=== PATIENT | female | born 2000 | race African-American/Black ===

== ENCOUNTER 2019-08-13 17:22 | Emergency (ER) | payer MEDICAID ==
[~2019-08-13] VITALS: Ht 157.5 cm; Wt 73.0 kg
[2019-08-13 18:01] VITALS: BP 130/84
== END 2019-08-13 22:00 | disposition left against medical advice (07) ==
LOC: ER 17:22
DX: Z53.21 Procedure and treatment not carried out due to patient leaving prior to being seen by health care provider (principal)